=== PATIENT | male | born 1985 | race Two or more races ===

== ENCOUNTER → 2018-09-11 | Outpatient (REF) | payer BC | LOC: M SFHCLERA 14:52 | PROVIDERS: ATTEND Physician Assistant | DX: J02.9 Acute pharyngitis, unspecified (principal) ==

== ENCOUNTER → 2022-12-15 | Outpatient (REF) | payer BC ==
[2022-12-15 14:32] LABS: SEMEN APPEARANCE OPAQUE (OPAQUE); SEMEN VISCOSITY LIQUID (LIQUID); SEMEN VOLUME 2.5 ml (2.0-5.0); SEMEN pH 8.5 (7.0-8.0); WBC CONCENTRATION <=1 M/ml (<=1 M/ml)
== END ==
LOC: M SMT 13:13
PROVIDERS: ATTEND Physician Assistant
DX: Z98.52 Vasectomy status (principal)